=== PATIENT | male | born 1955 | race Caucasian/White ===

== ENCOUNTER → 2016-12-05 | Outpatient (CLI) | payer OTHER ==
[~2016-12-05] MED LIST: ASPI81TA3 PO; CHLO25TA13 PO; IBUP800T25 PO; IMO2 PO; LISI40TA9 PO; METF850T PO; NAPR500T8 PO; SIMV20TA PO
--- NOTE | 2016-12-06 02:11 | HKNOTE ---
DATE OF SERVICE: 12/05/2016 Patient comes in for preoperative evaluation. He is scheduled to have an operative arthroscopy on h is right knee on 12/06/2016. He came here for surgery by Dr. Riley Hawley. He continues to have s ignificant symptoms in his left knee. The procedure and postoperative course were again discussed w ith him. Dictated By: ANUM DOVE/ANGELES Conf#: [id number] DID#: [id number]
== END | disposition home or self-care (01) ==
LOC: HKI 13:32
DX: Z01.818 Encounter for other preprocedural examination (principal); M25.562 Pain in left knee
CPT/HCPCS: G0463

== ENCOUNTER 2016-12-06 07:25 | Day surgery (SDC) | payer OTHER ==
[2016-12-06] VITALS (17 sets, daily range): BP systolic 124–154; BP diastolic 78–95; PULSE 78–95; RESP 13–19; Ht 175.3 cm; Wt 90.6 kg
[~2016-12-06] VITALS: Ht 175.3 cm; Wt 90.6 kg
[2016-12-06] MEDS ORDERED: ONDANSETRON 4 MG INJ IV ONE (08:00)
[2016-12-06] MEDS ORDERED: LACTATED RINGER'S 1,000 ML IV* SCH (08:00)
[2016-12-06] MEDS ORDERED: CELECOXIB 200 MG CAP PO ONE (08:00)
[2016-12-06] MEDS ORDERED: LANSOPRAZOLE 30 MG CAP PO ONE (08:00)
[2016-12-06] MEDS ORDERED: DEXAMETHASONE 4 MG/ML 1 ML INJ IV ONE (08:00)
[2016-12-06] MEDS ORDERED: VANCOMYCIN 1 GM in NS 250 ML IVPB ONE (08:00)
[2016-12-06] MEDS ORDERED: ACETAMINOPHEN 1000MG/100ML IV 100 ML IVPB ONE (08:00)
[2016-12-06] MEDS ORDERED: oxyCODONE (CR) 10 MG TAB [oxyCONTIN] PO ONE (08:00)
[2016-12-06] MEDS ORDERED: ASPI81TA3 PO (08:28)
[2016-12-06] MEDS ORDERED: IMO2 PO (08:28)
[2016-12-06] MEDS ORDERED: SIMV20TA PO (08:28)
[2016-12-06] MEDS ORDERED: IBUP800T25 PO (08:28)
[2016-12-06] MEDS ORDERED: CHLO25TA13 PO (08:28)
[2016-12-06] MEDS ORDERED: NAPR500T8 PO (08:28)
[2016-12-06] MEDS ORDERED: LISI40TA9 PO (08:28)
[2016-12-06] MEDS ORDERED: METF850T PO (08:28)
[2016-12-06] MEDS ORDERED: GLYCOPYRROLATE 1 MG INJ ONE (09:56)
[2016-12-06] MEDS ORDERED: ROCURONIUM 50 MG INJ ONE (09:56)
[2016-12-06] MEDS ORDERED: MIDAZOLAM 1 MG/ML 2 ML INJ ONE (09:56)
[2016-12-06] MEDS ORDERED: PROPOFOL 20 ML ONE (09:56)
[2016-12-06] MEDS ORDERED: FENTAnyl 50 MCG/ML VIAL ONE (09:56)
[2016-12-06] MEDS ORDERED: LIDOCAINE 2% (SDV) 5 ML INJ ONE (09:56)
[2016-12-06] MEDS ORDERED: NEOSTIGMINE 3 MG/3 ML SYRINGE ONE (09:56)
[2016-12-06] MEDS ORDERED: SUCCINYLCHOLINE CHLORIDE 100 MG/5 ML SYG IV ONE (09:57)
[2016-12-06] MEDS ORDERED: morphine SULFATE/PF (10 MG/10 ML) INJ ONE (10:15)
[2016-12-06] MEDS ORDERED: ROPIVACAINE 0.5 % 30 ML VIAL ONE (10:15)
[2016-12-06] MEDS ORDERED: BUPIVACAINE 0.25%/EPI (SDV) 30 ML INJ ONE (10:15)
[2016-12-06] MEDS ORDERED: KETOROLAC 30 MG INJ ONE (10:15)
--- NOTE | 2016-12-06 10:39 | HPN ---
Date/Time of Note Date/Time of Note DATE: 12/06/16 TIME: 10:38 Interval H&P Admission Note Pt. seen H&P reviewed: No system changes ANDREW OSLER PA-C Dec 06, 2016 10:38
[2016-12-06] MEDS ORDERED: FLUMAZENIL 0.5 MG INJ ONE (12:55)
[2016-12-06] MEDS ORDERED: morphine 10 MG INJ IV PRN (13:00)
[2016-12-06] MEDS ORDERED: HYDROCODONE/APAP (10/325) TAB PO PRN (13:00)
[2016-12-06] MEDS ORDERED: ACETAMINOPHEN 1000MG/100ML IV 100 ML IVPB SCH (13:00)
[2016-12-06] MEDS ORDERED: ONDANSETRON 4 MG INJ IV PRN (13:00)
[2016-12-06] MEDS ORDERED: HYDROCODONE/APAP (5/325) TAB PO PRN (13:00)
--- NOTE | 2016-12-06 15:17 | OPR ---
DATE OF OPERATION: 12/06/2016 SURGEON: David Sanchez MD WET COTTON FEEDER: DEMI Sky ANESTHESIOLOGIST: Antoine Maurer MD PREOPERATIVE DIAGNOSIS: Probable torn medial meniscus of the left knee. POSTOPERATIVE DIAGNOSES: 1. Torn medial meniscus, posterior third. 2. Mild degenerative changes in the patellofemoral joint. 3. Mild degenerative changes in the rest of the knee, more severe on the lateral tibial plateau. T he lateral meniscus was almost entirely normal except for fraying edges which were trimmed. PROCEDURES: 1. Diagnostic arthroscopy. 2. Partial medial meniscectomy. 3. Partial lateral meniscectomy. FINDINGS AT SURGERY: The patient was found to have compound tears of the posterior third of the med ial meniscus. DESCRIPTION OF PROCEDURE: Under general anesthetic, the left leg was prepared and draped in the usu al sterile fashion. A tourniquet was not used. Standard inferomedial and inferolateral portals wer e used. The knee was systematically inspected, and the above findings were noted. Using a variety of basket forceps and the motorized intraarticular shaver, a partial medial meniscec benedict was performed. The remaining meniscus was balanced and stable. Using basket forceps and the motorized intraarticular shaver, a partial lateral meniscectomy was per formed. Remaining meniscus was balanced and stable. At the end of procedure, the knee was copiously irrigated with fluids to remove the contained fragme nts. Fluid was aspirated. The wounds were closed with interrupted nylon. The usual sterile dressi ngs were applied. The patient returned to recovery room in stable condition. There were no problem s or complications as far as is known. Dictated By: DAVID DOVE/ANGELES Conf#: [id number] DID#: [id number]
== END 2016-12-06 15:50 | disposition home or self-care (01) ==
LOC: SDS 07:25
DX: M23.204 Derangement of unspecified medial meniscus due to old tear or injury, left knee (principal); M17.12 Unilateral primary osteoarthritis, left knee; I10 Essential (primary) hypertension; E11.9 Type 2 diabetes mellitus without complications; F17.200 Nicotine dependence, unspecified, uncomplicated
CPT/HCPCS: 29870; 82962; J0131; J0330; J1100; J1885; J2250; J2274; J2405; J2710; J2795; J3010; J3370; Z7610

== ENCOUNTER → 2016-12-11 | Outpatient (CLI) | payer OTHER ==
--- NOTE | 2016-12-11 22:41 | HKNOTE ---
DATE OF SERVICE: 12/11/2016 SUBJECTIVE: A 61-year-old male status post left knee arthroscopy with partial medial meniscectomy and partial lateral meniscectomy performed on 12/06/2016 presents today for postoperative visit. Since the surgery, patient states that he has been in minimal pain since discharge from the hospital. At times, patient states that he has slight limp, but denies any pain with ambulation. The patient states that he has been going 1 day with independent ambulation and 1 day with crutches. No falls since he was seen. The patient denies any calf pain. No difficulty breathing or chest pain. OBJECTIVE: VITAL SIGNS: Blood pressure 116/66, temperature 98.6 degrees, pulse 89, respiratory rate 12, height 5 feet 9 inches, weight 220 pounds. GENERAL: The patient is alert, oriented with no acute distress. RIGHT KNEE: Sutures intact to the right knee. Mild swelling status post surgery local to the right knee. No tenderness to palpation. There is mild ecchymosis along the medial side of the knee just distal to the surgical wound. The patient is able to flex the knee up to 120 degrees and extend up to 0 degrees. The patient is walking today with slight limp, but denies any pain with ambulation. Normal sensory examination to light touch. No calf pain on exam. Arthroscopic imaging reviewed, discussed with patient and patient provided with copy today. ASSESSMENT AND PLAN: The patient will follow up 10 days postop for suture removal. Physical therapy will be prescribed on followup next week. The patient made aware, however, should he experience any pain complaints or worsening symptoms, he may follow up sooner if needed. The patient states understanding and compliance. Dictated By: ANDREW SIMMS for ANUM NOVAK MD, KP/ANGELES Conf#: [id number] DID#: [id number] MTDD
== END | disposition home or self-care (01) ==
LOC: HKI 13:46
DX: Z47.89 Encounter for other orthopedic aftercare (principal)
CPT/HCPCS: G0463

== ENCOUNTER → 2016-12-18 | Outpatient (CLI) | payer OTHER ==
--- NOTE | 2016-12-18 17:54 | HKNOTE ---
DATE OF SERVICE: 12/18/2016 SUBJECTIVE: A 61-year-old male presents today for 10-day postoperative visit status post left knee arthroscopy with partial medial and lateral meniscectomy performed on 12/06/2016. Since the surgery, patient has mild pain complaints. The patient is up and ambulating. No complications status post surgery. Sutures remain intact. VITAL SIGNS: Blood pressure is 108/69, temperature is 98.7, pulse is 87, respiratory rate is 12. Height is 5 feet 9 inches, weight is 220 pounds. PHYSICAL EXAMINATION: The patient is ambulating. Mild pain complaints/aching with ambulation to the right knee. Wound sites are clean, dry and intact with no signs of infection. Sutures intact. No tenderness to palpation on exam. The patient does have complaints of aching and pain, mostly with weightbearing. PLAN: 1. Sutures removed today and Steri-Strips applied. Wound care instructions discussed in detail with patient. 2. Physical therapy form given for patient for outpatient physical therapy. 3. Paperwork filled out today, and per instructions by Dr. Novak, 6 months given with instructions that patient is unable to perform sedentary work. 4. Dr. Novak has advised patient to follow up in 3 weeks for repeat evaluation and monitoring. Dictated By: ANDREW SIMMS for ANUM NOVAK MD, KP/ANGELES Conf#: [id number] DID#: [id number] MTDD
== END | disposition home or self-care (01) ==
LOC: HKI 14:25
DX: Z47.89 Encounter for other orthopedic aftercare (principal)
CPT/HCPCS: G0463

== ENCOUNTER 2016-12-26 19:25 | Emergency (ER) | payer OTHER ==
[~2016-12-26] VITALS: Ht 177.8 cm; Wt 90.5 kg
[2016-12-26 20:13] VITALS: Ht 177.8 cm; Wt 90.5 kg
[2016-12-26] MEDS ORDERED: HYDR-906 PO (21:53)
[2016-12-26] MEDS ORDERED: BACTDS PO (21:53)
[2016-12-26] MEDS ORDERED: CEPH-443 PO (21:53)
[2016-12-26 22:07] VITALS: TEMP 98.3
--- NOTE | 2016-12-26 23:05 | ERD ---
ER Documentation Chief Complaint Date/Time DATE: 12/26/16 TIME: 23:04 Chief Complaint Right foot pain HPI 61-year-old male who presents with right foot pain. He describes a blister on the plantar surface of his foot that is moderately painful. He does have a history of diabetes. Symptoms for approximately 48 hours. He denies any fevers chills or drainage. ROS All systems reviewed and are negative except as per history of present illness. Medications Home Meds Active Scripts Sulfamethoxazole-Trimethoprim* (Bactrim* DS) 800-160 Mg Tab, 1 TAB PO BID for 7 Days, TAB Prov:MARILU ROBIN MD 12/26/16 Cephalexin* (Keflex*) 500 Mg Capsule, 500 MG PO QID for 7 Days, CAP Prov:MARILU ROBIN MD 12/26/16 Hydrocodone/Acetaminophen ([place] 5-325 Tablet) 1 Each Tablet, 1 TAB PO Q6H Y for PAIN, #7 TAB Prov:MARILU ROBIN MD 12/26/16 Reported Medications Metformin Hcl* (Metformin Hcl*) 850 Mg Tablet, 850 MG PO WITH BREAKFAST, #30 TAB 12/06/16 Naproxen* (Naproxen EC*) 500 Mg Tablet.dr, 500 MG PO BID, TAB 12/06/16 Chlorthalidone* (Chlorthalidone*) 25 Mg Tablet, 25 MG PO DAILY, TAB 12/06/16 Lisinopril* (Lisinopril*) 40 Mg Tablet, 40 MG PO DAILY, #30 TAB 12/06/16 Simvastatin* (Zocor*) 20 Mg Tablet, 20 MG PO QHS, #30 TAB 12/06/16 Loperamide Hcl* (Loperamide Hcl*) 2 Mg Cap, 2 MG PO, CAP 12/06/16 Ibuprofen* (Ibuprofen*) 800 Mg Tablet, 800 MG PO Q8, TAB 12/06/16 Aspirin* (Aspirin* Chew) 81 Mg Tab.chew, 81 MG PO DAILY, TAB.CHEW 12/06/16 Allergies Allergies: Coded Allergies: No Known Allergy (Unverified , 12/06/16) PMhx/Soc History of Surgery: Yes (left knee surgery) Anesthesia Reaction: No Hx Neurological Disorder: No Hx Respiratory Disorders: No Hx Cardiac Disorders: Yes (htn, dm) Hx Psychiatric Problems: No Hx Miscellaneous Medical Probl: No Hx Alcohol Use: Yes (rarely) Hx Substance Use: No Hx Tobacco Use: No Smoking Status: Never smoker FmHx Family History: diabetes Physical Exam Vitals Vital Signs Date Time Temp Pulse Resp B/P Pulse Ox O2 Delivery O2 Flow Rate FiO2 12/26/16 22:07 98.3 12/26/16 20:13 96 18 121/81 98 Physical Exam General: Well developed, well nourished, no acute distress Head: Normocephalic, atraumatic. Eyes: EOM intact ENT: Moist mucous membranes Neck: Full ROM Respiratory: No respiratory distress Cardiovascular: Good capillary refil Abdominal: Nondistended : Deferred MSK: The patient has a small ulceration in between the first and second MTP joints without erythema warmth or tenderness, no drainage or discharge. This appears to be subacute, good capillary refill. Neurologic: Alert and oriented, moving all extremities, normal speech, steady gait Skin: As described above Psych: Normal mood Procedures/MDM The patient has a clinical exam consistent with a diabetic foot ulcer that does not appear to be infected. No evidence of osteomyelitis. Empiric antibiotics will be reasonable, outpatient follow-up with podiatry was certainly necessary. I discussed wound care techniques, return precautions. The patient will be given pain control medication. No indication for labs or diagnostic imaging at this time. We discussed follow up with the patient's primary care doctor within 24 to 48 hours as needed. We also discussed return to the emergency room for worsening symptoms or worsening condition. Discharge Medications: Bactrim, Keflex, [place] We discussed the use of narcotics including avoidance of operating heavy machinery and driving as well as its addictive properties. Departure Diagnosis: Primary Impression: Foot ulcer Laterality: right Non-pressure ulcer stage: limited to breakdown of skin Qualified Code: L97.511 - Foot ulcer, right, limited to breakdown of skin Additional Impression: Foot ulcer due to secondary DM Condition: Stable Patient Instructions: Diabetic Foot Ulcers Referrals: BANDAR SARKAR MD, BABAK DPM Additional Instructions: Call your primary care doctor TOMORROW for an appointment during the next 1 WEEK.Tell the unit secretary that you were referred from this facility.See the doctor sooner or return here if your condition worsens before your appointment time. MARILU ROBIN MD Dec 26, 2016 23:05
== END 2016-12-26 22:07 | disposition home or self-care (01) ==
LOC: FTE 19:25
DX: L97.511 Non-pressure chronic ulcer of other part of right foot limited to breakdown of skin (principal); E11.621 Type 2 diabetes mellitus with foot ulcer; I10 Essential (primary) hypertension; Z79.84 Long term (current) use of oral hypoglycemic drugs; Z79.82 Long term (current) use of aspirin
CPT/HCPCS: 99284

== ENCOUNTER 2017-05-25 16:58 | Emergency (ER) | payer OTHER ==
[~2017-05-25] VITALS: Ht 175.3 cm; Wt 76.5 kg
[~2017-05-25 16:58] MED LIST changes: +BACTDS PO; +CEPH-443 PO; +HYDR-906 PO
[2017-05-25 17:00] VITALS: Ht 175.3 cm; Wt 76.5 kg
[2017-05-25] MEDS ORDERED: CIPR7.5D4 BOTH EARS (17:45)
--- NOTE | 2017-05-25 17:52 | ERD ---
ER Documentation Chief Complaint Date/Time DATE: 05/25/17 TIME: 17:45 Chief Complaint LEFT EAR DIMINISHED HEARING HPI Patient is a 61-year-old male with past medical history of hypertension, hyperlipidemia, diabetes presents emergency department for decreased hearing from his left ear. Patient is concerned that he may have a buildup of wax. Patient denies any pain, active drainage or active bleeding.. Patient denies any fevers, chills, nausea, vomiting, cough, rhinorrhea, chest pain, shortness breath or LOC. Denies any recent water activities. ROS All systems reviewed and are negative except as per history of present illness. Medications Home Meds Active Scripts Amoxicillin* (Amoxicillin*) 500 Mg Cap, 500 MG PO BID for 7 Days, CAP Prov:JAMIL LUIS PA-C 05/25/17 Ciprofloxacin Hcl/Dexameth (Ciprodex Otic Suspension) 7.5 Ml Drops.susp, 4 DROP BOTH EARS BID for 7 Days, EA Prov:JAMIL LUIS PA-C 05/25/17 Sulfamethoxazole-Trimethoprim* (Bactrim* DS) 800-160 Mg Tab, 1 TAB PO BID for 7 Days, TAB Prov:MARILU ROBIN MD 12/26/16 Cephalexin* (Keflex*) 500 Mg Capsule, 500 MG PO QID for 7 Days, CAP Prov:MARILU ROBIN MD 12/26/16 Hydrocodone/Acetaminophen ([place] 5-325 Tablet) 1 Each Tablet, 1 TAB PO Q6H Y for PAIN, #7 TAB Prov:MARILU ROBIN MD 12/26/16 Reported Medications Metformin Hcl* (Metformin Hcl*) 850 Mg Tablet, 850 MG PO WITH BREAKFAST, #30 TAB 12/06/16 Naproxen* (Naproxen EC*) 500 Mg Tablet.dr, 500 MG PO BID, TAB 12/06/16 Chlorthalidone* (Chlorthalidone*) 25 Mg Tablet, 25 MG PO DAILY, TAB 12/06/16 Lisinopril* (Lisinopril*) 40 Mg Tablet, 40 MG PO DAILY, #30 TAB 12/06/16 Simvastatin* (Zocor*) 20 Mg Tablet, 20 MG PO QHS, #30 TAB 12/06/16 Loperamide Hcl* (Loperamide Hcl*) 2 Mg Cap, 2 MG PO, CAP 1/27/17 Ibuprofen* (Ibuprofen*) 800 Mg Tablet, 800 MG PO Q8, TAB 12/06/16 Aspirin* (Aspirin* Chew) 81 Mg Tab.chew, 81 MG PO DAILY, TAB.CHEW 12/06/16 Allergies Allergies: Coded Allergies: No Known Allergy (Unverified , 12/06/16) PMhx/Soc History of Surgery: Yes (left knee surgery) Anesthesia Reaction: No Hx Neurological Disorder: No Hx Respiratory Disorders: No Hx Cardiac Disorders: Yes (htn, dm) Hx Psychiatric Problems: No Hx Miscellaneous Medical Probl: No Hx Alcohol Use: Yes (rarely) Hx Substance Use: No Hx Tobacco Use: No FmHx Family History: No diabetes Physical Exam Vitals Vital Signs Date Time Temp Pulse Resp B/P Pulse Ox O2 Delivery O2 Flow Rate FiO2 05/25/17 17:00 98.3 95 18 117/75 99 Physical Exam GENERAL: Well-developed, well-nourished male. Appears in no acute distress. Speaking in full sentences HEAD: Normocephalic, atraumatic. No deformities or ecchymosis. EYE: Pupils equal, round, and reactive to light. EOMs intact. No conjunctival erythema. No eye discharge. ENT: External ear without any masses or tenderness. Difficulty with visualizing bilateral tympanic membranes secondary to cerumen impaction. Nasal mucosa pink with no discharge. Oropharynx is pink without any tonsillar erythema or exudates. No uvula deviation. No kissing tonsils. Nontender palpation of bilateral mastoid processes. NECK: Supple. No meningismus. Normal ROM of the neck. LUNG: Clear to auscultation bilaterally. No rhonchi, wheezing, rales or coarse breath sounds. HEART: Regular rate and rhythm. No murmurs, rubs or gallops. BACK: No midline tenderness. EXTREMITIES: Equal pulses bilaterally. No peripheral clubbing, cyanosis or edema. No unilateral leg swelling. NEUROLOGIC: Alert and oriented to person, place and time. Moving all four extremities. 5/5 strength in all extremities. Normal speech. Steady gait. SKIN: Normal color. Warm and dry. No rashes or lesions. Procedures/MDM MEDICAL DECISION MAKING: This is a 61-year-old male who presents with decreased hearing from his left ear. Vital signs were reviewed. Patient was afebrile. Patient was not hypoxic. Exam revealed bilateral cerumen impaction. Unable to visualize TM. Ear lavage was performed by ED nursing staff using H20/hydrogen peroxide mix. No trauma or complications were noted. Patient did report improvement in hearing, however some cerumen did remain on visualization. Repeat ear lavage was conducted given that patient reported feelings of dizziness, which did completely resolve with rest and discontinuation of ear lavages. Slightly able to visualize TM, non-erythematous, however unable to fully visualize. Given these findings, the patient's presentation is most consistent with cerumen impaction. I have a much lower clinical suspicion tympanic membrane perforation , mastoiditis, otic barotrauma, TMJ dysfunction. Given that the patient does have a history of diabetes and difficulty noted with fully visualize TM, I will treat the patient prophylactically with Amoxicillin and Ciprodex. PRESCRIPTIONS: Amoxicillin Ciprodex DISCHARGE: At this time, patient is stable for discharge and outpatient management. Patient advised not use Qtips. I have instructed the patient to follow-up with his/her primary care physician in 1-2 days. I have discussed with the patient the possibility of needing to see ENT specialist for further workup and diagnostic studies if the pain persists. I have instructed the patient to promptly return to the ER at any time for any new or worsening symptoms including increased pain, fever, swelling, discharge or hearing loss. The patient and/or family expressed understanding of and agreement with this plan. All questions were answered. Home care instructions were provided. Departure Diagnosis: Primary Impression: Cerumen impaction Laterality: bilateral Qualified Code: H61.23 - Bilateral impacted cerumen Additional Impression: Other otitis externa, unspecified ear Condition: Stable Patient Instructions: Cerumen Impaction, Home Care Referrals: ABDON HERNANDEZ MD,HUGH KATZ,FRANDY STALLINGS,SANTOS Martinez MD Additional Instructions: Call your primary care doctor TOMORROW for an appointment during the next 1-2 days.See the doctor sooner or return here if your condition worsens before your appointment time. You may need to follow-up with ENT specialist. See referral information. DO NOT use Qtips. Use antibiotic ear drops. JAMIL LUIS PA-C May 25, 2017 17:52
[2017-05-25] MEDS ORDERED: AMO500 PO (19:04)
== END 2017-05-25 19:13 | disposition home or self-care (01) ==
LOC: FTE 16:58
DX: H61.23 Impacted cerumen, bilateral (principal); H60.8X3 Other otitis externa, bilateral; I10 Essential (primary) hypertension; E11.9 Type 2 diabetes mellitus without complications; Z79.82 Long term (current) use of aspirin; Z79.84 Long term (current) use of oral hypoglycemic drugs

== ENCOUNTER 2017-12-03 01:08 | Observation (INO) | END 2017-12-04 18:12 | disposition home or self-care (01) ==

== ENCOUNTER 2019-05-09 05:06 | Emergency (ER) | payer OTHER ==
[~2019-05-09] VITALS: Ht 175.3 cm; Wt 80.8 kg
[~2019-05-09 05:06] MED LIST changes: +ASPI-903 PO; -ASPI81TA3 PO; -BACTDS PO; -CEPH-443 PO; -CHLO25TA13 PO; +CHLO25TA2 PO; -HYDR-906 PO; -IBUP800T25 PO; -IMO2 PO; +LISI40TA3 PO; -LISI40TA9 PO; +LOPE-123 PO; -METF850T PO; +METF850T13 PO
[2019-05-09 05:10] VITALS: BP 180/90; PULSE 95; RESP 18; Ht 175.3 cm; Wt 80.8 kg
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
[2019-05-09] MEDS ORDERED: HYDROCODONE/APAP (10/325) TAB PO ONE (06:00)
[2019-05-09] MEDS ORDERED: DIPHTH/TET/ACEL PERTUSS (ADULT) 0.5 ML VIAL IM* ONE (06:00)
[2019-05-09] MEDS ORDERED: AMOXICILLIN/CLAV 875 MG TAB PO ONE (08:00)
[2019-05-09] MEDS ORDERED: HYDR-3980 PO (08:25)
[2019-05-09] MEDS ORDERED: AMOX1TAB10 PO (08:26)
[2019-05-09] MEDS ORDERED: IBUP800T48 PO (08:27)
== END 2019-05-09 08:39 | disposition home or self-care (01) ==
LOC: FTE 05:06
DX: S02.40DA Maxillary fracture, left side, initial encounter for closed fracture (principal); I10 Essential (primary) hypertension; S02.601A Fracture of unspecified part of body of right mandible, initial encounter for closed fracture; S02.602A Fracture of unspecified part of body of left mandible, initial encounter for closed fracture; Y04.8XXA Assault by other bodily force, initial encounter; Z23 Encounter for immunization; Z79.82 Long term (current) use of aspirin; Z87.891 Personal history of nicotine dependence
CPT/HCPCS: 70450; 70486; 72125; 90471; 90715; Z7502; Z7610

== ENCOUNTER 2019-09-03 18:27 | Inpatient (IN) | payer OTHER ==
[~2019-09-03] VITALS: Ht 175.3 cm; Wt 84.0 kg
[~2019-09-03 18:27] MED LIST changes: +AMLO-147 PO; +AMOX1TAB10 PO; +AMOX500C2 PO; +CEPH500C PO; +DOCU-144 PO; +FER325 PO; +HYDR-3980 PO; +IBUP800T48 PO; +MECL-77 PO; +TAMS-14 PO
[2019-09-03] MEDS ORDERED: VANCOMYCIN 1 GM (PMX) 250 ML IVPB STA (19:33)
[2019-09-03] MEDS ORDERED: SODIUM CHLORIDE 0.9% 1L BAG IV* STA (19:33)
[2019-09-03] MEDS ORDERED: PIPER-TAZO 3.375 GM IV (PMX) 100 ML IVPB STA (19:33)
[2019-09-03] MEDS ORDERED: ONDANSETRON 4 MG INJ IV PRN (20:30)
[2019-09-03] MEDS ORDERED: ACETAMINOPHEN 325 MG TAB PO PRN (20:30)
[2019-09-03] MEDS ORDERED: SOD CHLORIDE 0.9% 1,000 ML IV SCH (23:57)
[2019-09-04] MEDS ORDERED: ALBUTEROL/IPRATROPIUM (NEB) 3 ML AMP HHN PRN
[2019-09-04 03:00] VITALS: Ht 175.3 cm; Wt 84.0 kg
[2019-09-04 03:15] VITALS: BP 98/60; PULSE 85; RESP 17
[2019-09-04] MEDS ORDERED: DEXTROSE 50% 50 ML SYRINGE IV PRN ×2 (07:00)
[2019-09-04] MEDS ORDERED: ACETAMINOPHEN 325 MG TAB PO PRN ×2 (07:00)
[2019-09-04] MEDS ORDERED: NACL 0.9% 3 ML SYG IV SCH ×2 (07:00)
[2019-09-04] MEDS ORDERED: GLUCOSE GEL 15 GRAM TUBE PO PRN ×2 (07:00)
[2019-09-04] MEDS ORDERED: GLUCAGON 1 MG INJ IM PRN (07:00)
[2019-09-04] MEDS ORDERED: MECLIZINE 25 MG TAB PO PRN (07:00)
[2019-09-04] MEDS ORDERED: GLUCOSE GEL 15 GRAM TUBE BUCCAL PRN (07:00)
[2019-09-04] MEDS ORDERED: HYDROCODONE/APAP (5/325) TAB PO PRN (07:00)
[2019-09-04] MEDS ORDERED: VANCOMYCIN IV PER PHARMACY XX SCH (07:00)
[2019-09-04] MEDS ORDERED: ONDANSETRON 4 MG INJ IV PRN ×2 (07:00)
[2019-09-04] MEDS: ACCU-CHEK XX SCH ×4 (07:05→20:32)
[2019-09-04] MEDS: SOD CHLORIDE 0.9% 1,000 ML IV SCH ×2 (07:12→17:17)
[2019-09-04] MEDS: PIPER-TAZO 3.375 GM IV (PMX) 100 ML IVPB SCH ×4 (07:12→23:45)
[2019-09-04 07:46] VITALS: BP 128/65; PULSE 80; RESP 17
[2019-09-04] MEDS: DOCUSATE SODIUM 100 MG CAP PO SCH ×2 (08:53→20:31)
[2019-09-04] MEDS: LISINOPRIL 20 MG TAB PO SCH (08:54)
[2019-09-04] MEDS: metFORMIN 850 MG TAB PO SCH ×2 (08:54→17:18)
[2019-09-04] MEDS: FERROUS SULFATE (EC) 325 MG TAB PO SCH ×2 (08:54→20:31)
[2019-09-04] MEDS: AMLODIPINE 10 MG TAB PO SCH (08:55)
[2019-09-04] MEDS: CHLORTHALIDONE 25 MG TAB PO SCH (08:55)
[2019-09-04] MEDS: ENOXAPARIN 40 MG/0.4 ML SYG SC SCH (08:57)
[2019-09-04] MEDS ORDERED: HEPARIN 5,000 UNIT/1 ML VIAL SC SCH (09:00)
[2019-09-04] MEDS: VANCOMYCIN 1 GM 250 ML IVPB SCH ×2 (09:00→20:01)
[2019-09-04 14:31] VITALS: BP 138/68; PULSE 93; RESP 17
[2019-09-04] MEDS: HYDROCODONE/APAP (5/325) TAB PO PRN (17:18)
[2019-09-04 19:40] VITALS: BP 121/58; PULSE 86; RESP 18
[2019-09-04] MEDS: TAMSULOSIN (SR) 0.4 MG CAP PO SCH (20:31)
[2019-09-04] MEDS: ATORVASTATIN 10 MG TAB PO SCH (20:32)
[2019-09-04] MEDS ORDERED: NON-FORMULARY/PATIENT OWN MED (Simvastatin* (Zocor*) 20 MG) PO SCH (21:00)
[2019-09-05 02:00] VITALS: BP 132/60; PULSE 90; RESP 18
[2019-09-05] MEDS: PIPER-TAZO 3.375 GM IV (PMX) 100 ML IVPB SCH ×4 (05:26→23:31)
[2019-09-05] MEDS: ACCU-CHEK XX SCH ×4 (07:05→20:17)
[2019-09-05 07:44] VITALS: BP 120/61; PULSE 86; RESP 20
[2019-09-05] MEDS: metFORMIN 850 MG TAB PO SCH ×2 (08:54→17:33)
[2019-09-05] MEDS: LISINOPRIL 20 MG TAB PO SCH (08:56)
[2019-09-05] MEDS: CHLORTHALIDONE 25 MG TAB PO SCH (08:56)
[2019-09-05] MEDS: DOCUSATE SODIUM 100 MG CAP PO SCH ×2 (08:57→20:26)
[2019-09-05] MEDS: FERROUS SULFATE (EC) 325 MG TAB PO SCH ×2 (08:57→20:26)
[2019-09-05] MEDS: ENOXAPARIN 40 MG/0.4 ML SYG SC SCH (09:01)
[2019-09-05] MEDS: VANCOMYCIN 1 GM 250 ML IVPB SCH ×2 (09:01→19:52)
[2019-09-05] MEDS: AMLODIPINE 10 MG TAB PO SCH (09:02)
[2019-09-05] MEDS ORDERED: POTASSIUM CHLORIDE (SR) 20 MEQ TAB PO STA (09:27)
[2019-09-05] MEDS: SOD CHLORIDE 0.9% 1,000 ML IV SCH ×2 (11:11→15:00)
[2019-09-05 14:57] VITALS: BP 131/65; PULSE 95; RESP 20
[2019-09-05 20:11] VITALS: BP 146/79; PULSE 89; RESP 20
[2019-09-05] MEDS: HYDROCODONE/APAP (5/325) TAB PO PRN (20:26)
[2019-09-05] MEDS: ATORVASTATIN 10 MG TAB PO SCH (20:26)
[2019-09-05] MEDS: TAMSULOSIN (SR) 0.4 MG CAP PO SCH (20:26)
[2019-09-06 02:55] VITALS: BP 177/83; PULSE 84; RESP 20
[2019-09-06 04:05] VITALS: BP 107/62; PULSE 84
[2019-09-06] MEDS: PIPER-TAZO 3.375 GM IV (PMX) 100 ML IVPB SCH ×3 (05:15→17:05)
[2019-09-06] MEDS: ACCU-CHEK XX SCH ×4 (07:05→21:00)
[2019-09-06 07:36] VITALS: BP 100/59; PULSE 67; RESP 16
[2019-09-06] MEDS ORDERED: VANCOMYCIN 1.25 GM/NS 250 ML 250 ML IVPB SCH (08:00)
[2019-09-06] MEDS: VANCOMYCIN 1.25 GM/NS 250 ML 250 ML IVPB SCH ×2 (08:42→20:37)
[2019-09-06] MEDS: metFORMIN 850 MG TAB PO SCH ×2 (08:48→17:12)
[2019-09-06] MEDS: DOCUSATE SODIUM 100 MG CAP PO SCH ×2 (08:49→20:13)
[2019-09-06] MEDS: FERROUS SULFATE (EC) 325 MG TAB PO SCH ×2 (08:49→20:13)
[2019-09-06] MEDS: AMLODIPINE 10 MG TAB PO SCH (08:51)
[2019-09-06] MEDS: CHLORTHALIDONE 25 MG TAB PO SCH (08:51)
[2019-09-06] MEDS: ENOXAPARIN 40 MG/0.4 ML SYG SC SCH (08:52)
[2019-09-06] MEDS: LISINOPRIL 20 MG TAB PO SCH (08:53)
[2019-09-06] MEDS: SOD CHLORIDE 0.9% 1,000 ML IV SCH (13:13)
[2019-09-06 14:45] VITALS: BP 137/73; PULSE 91; RESP 17
[2019-09-06 20:00] VITALS: BP 131/73; PULSE 91; RESP 18
[2019-09-06] MEDS: TAMSULOSIN (SR) 0.4 MG CAP PO SCH (20:13)
[2019-09-06] MEDS: ATORVASTATIN 10 MG TAB PO SCH (20:13)
[2019-09-07] MEDS: PIPER-TAZO 3.375 GM IV (PMX) 100 ML IVPB SCH ×4 (00:01→17:21)
[2019-09-07 02:00] VITALS: BP 163/90; PULSE 95; RESP 18
[2019-09-07] MEDS: SOD CHLORIDE 0.9% 1,000 ML IV SCH (05:36)
[2019-09-07] MEDS: ACCU-CHEK XX SCH ×4 (07:05→20:14)
[2019-09-07 07:50] VITALS: BP 166/77; PULSE 90; RESP 19
[2019-09-07] MEDS: VANCOMYCIN 1.25 GM/NS 250 ML 250 ML IVPB SCH ×2 (08:38→19:53)
[2019-09-07] MEDS: DOCUSATE SODIUM 100 MG CAP PO SCH ×2 (08:41→20:05)
[2019-09-07] MEDS: LISINOPRIL 20 MG TAB PO SCH (08:42)
[2019-09-07] MEDS: AMLODIPINE 10 MG TAB PO SCH (08:42)
[2019-09-07] MEDS: FERROUS SULFATE (EC) 325 MG TAB PO SCH ×2 (08:43→20:05)
[2019-09-07] MEDS: ENOXAPARIN 40 MG/0.4 ML SYG SC SCH (08:43)
[2019-09-07] MEDS: CHLORTHALIDONE 25 MG TAB PO SCH (08:43)
[2019-09-07] MEDS: metFORMIN 850 MG TAB PO SCH ×2 (08:50→17:19)
[2019-09-07 14:50] VITALS: BP 136/72; PULSE 92; RESP 18
[2019-09-07 19:48] VITALS: BP_SYST 128; BP_SYST 178; BP_DIAS 88; PULSE 87; RESP 17
[2019-09-07] MEDS: HYDROCODONE/APAP (5/325) TAB PO PRN (20:00)
[2019-09-07] MEDS: TAMSULOSIN (SR) 0.4 MG CAP PO SCH (20:05)
[2019-09-07] MEDS: ATORVASTATIN 10 MG TAB PO SCH (20:05)
[2019-09-08] MEDS: PIPER-TAZO 3.375 GM IV (PMX) 100 ML IVPB SCH ×4 (00:28→17:43)
[2019-09-08 01:53] VITALS: BP 124/76; PULSE 80; RESP 18
[2019-09-08] MEDS: ACCU-CHEK XX SCH ×4 (07:05→21:00)
[2019-09-08 07:50] VITALS: BP 136/88; PULSE 84; RESP 18
[2019-09-08] MEDS: CHLORTHALIDONE 25 MG TAB PO SCH (08:22)
[2019-09-08] MEDS: AMLODIPINE 10 MG TAB PO SCH (08:23)
[2019-09-08] MEDS: FERROUS SULFATE (EC) 325 MG TAB PO SCH ×2 (08:24→20:12)
[2019-09-08] MEDS: LISINOPRIL 20 MG TAB PO SCH (08:24)
[2019-09-08] MEDS: DOCUSATE SODIUM 100 MG CAP PO SCH ×2 (08:24→20:12)
[2019-09-08] MEDS: ENOXAPARIN 40 MG/0.4 ML SYG SC SCH (08:25)
[2019-09-08] MEDS: metFORMIN 850 MG TAB PO SCH ×2 (08:28→17:43)
[2019-09-08] MEDS: VANCOMYCIN 1.25 GM/NS 250 ML 250 ML IVPB SCH ×2 (09:53→20:13)
[2019-09-08 14:00] VITALS: BP 153/89; PULSE 70; RESP 18
[2019-09-08 20:10] VITALS: BP 150/99; PULSE 82; RESP 18
[2019-09-08] MEDS: TAMSULOSIN (SR) 0.4 MG CAP PO SCH (20:12)
[2019-09-08] MEDS: ATORVASTATIN 10 MG TAB PO SCH (20:13)
[2019-09-09] MEDS: PIPER-TAZO 3.375 GM IV (PMX) 100 ML IVPB SCH ×4 (00:26→17:11)
[2019-09-09] MEDS: ACCU-CHEK XX SCH ×6 (01:00→20:35)
[2019-09-09 02:00] VITALS: BP 147/98; PULSE 82
[2019-09-09 08:01] VITALS: BP 127/94; PULSE 83; RESP 17
[2019-09-09] MEDS: DOCUSATE SODIUM 100 MG CAP PO SCH ×2 (08:19→20:34)
[2019-09-09] MEDS: FERROUS SULFATE (EC) 325 MG TAB PO SCH ×2 (08:19→20:34)
[2019-09-09] MEDS: metFORMIN 850 MG TAB PO SCH ×2 (08:20→17:11)
[2019-09-09] MEDS: LISINOPRIL 20 MG TAB PO SCH (08:21)
[2019-09-09] MEDS: AMLODIPINE 10 MG TAB PO SCH (08:21)
[2019-09-09] MEDS: CHLORTHALIDONE 25 MG TAB PO SCH (08:21)
[2019-09-09] MEDS: ENOXAPARIN 40 MG/0.4 ML SYG SC SCH (08:23)
[2019-09-09] MEDS: VANCOMYCIN 1.25 GM/NS 250 ML 250 ML IVPB SCH ×2 (08:25→20:34)
[2019-09-09] MEDS ORDERED: DEXTROSE 5%-0.9% NACL 1,000 ML IV SCH (10:30)
[2019-09-09 14:38] VITALS: BP 108/67; PULSE 78; RESP 17
[2019-09-09 20:00] VITALS: BP 133/84; PULSE 92; RESP 17
[2019-09-09] MEDS: ATORVASTATIN 10 MG TAB PO SCH (20:34)
[2019-09-09] MEDS: TAMSULOSIN (SR) 0.4 MG CAP PO SCH (20:34)
[2019-09-10] VITALS (15 sets, daily range): BP systolic 106–135; BP diastolic 64–94; PULSE 76–86; RESP 13–19
[2019-09-10] MEDS: PIPER-TAZO 3.375 GM IV (PMX) 100 ML IVPB SCH ×4 (00:12→17:24)
[2019-09-10] MEDS: ACCU-CHEK XX SCH ×6 (01:14→20:41)
[2019-09-10] MEDS: DOCUSATE SODIUM 100 MG CAP PO SCH ×2 (08:28→20:34)
[2019-09-10] MEDS: FERROUS SULFATE (EC) 325 MG TAB PO SCH ×2 (08:28→20:34)
[2019-09-10] MEDS: metFORMIN 850 MG TAB PO SCH ×2 (08:29→17:26)
[2019-09-10] MEDS: CHLORTHALIDONE 25 MG TAB PO SCH (08:29)
[2019-09-10] MEDS: AMLODIPINE 10 MG TAB PO SCH (08:29)
[2019-09-10] MEDS: LISINOPRIL 20 MG TAB PO SCH (08:30)
[2019-09-10] MEDS: ENOXAPARIN 40 MG/0.4 ML SYG SC SCH (08:30)
[2019-09-10] MEDS: VANCOMYCIN 1.25 GM/NS 250 ML 250 ML IVPB SCH ×2 (08:33→20:27)
[2019-09-10] MEDS ORDERED: PROPOFOL 20 ML ONE (14:36)
[2019-09-10] MEDS ORDERED: LIDOCAINE 2% (SDV) 5 ML INJ ONE (14:36)
[2019-09-10] MEDS ORDERED: FENTAnyl 50 MCG/ML VIAL ONE (15:13)
[2019-09-10] MEDS ORDERED: HYDROGEN PEROXIDE 118 ML ONE (15:33)
[2019-09-10] MEDS ORDERED: POLYMYXIN/BACITRACIN 1L IRRIG IRR ONE (15:47)
[2019-09-10] MEDS ORDERED: LABETALOL HCL 20MG INJ IV PRN (16:30)
[2019-09-10] MEDS ORDERED: hydrALAzine 20 MG INJ IV PRN (16:30)
[2019-09-10] MEDS ORDERED: NACL 0.9% 3 ML SYG IV SCH (16:30)
[2019-09-10] MEDS ORDERED: DIPHENHYDRAMINE 50 MG INJ IV PRN (16:30)
[2019-09-10] MEDS ORDERED: METOCLOPRAMIDE 10 MG INJ IV PRN (16:30)
[2019-09-10] MEDS ORDERED: OXYCODONE/ACETAMINOPHEN (5/325) TAB PO PRN ×2 (16:30)
[2019-09-10] MEDS ORDERED: EPHEDrine 25 MG/5 ML SYG IV PRN (16:30)
[2019-09-10] MEDS ORDERED: MEPERIDINE 25 MG INJ IV PRN (16:30)
[2019-09-10] MEDS ORDERED: HYDROmorphONE 1 MG/5 ML IV SYRINGE IV PRN ×2 (16:30)
[2019-09-10] MEDS ORDERED: ALBUTEROL 0.083% (NEB) 2.5 MG/3 ML AMP HHN PRN (16:30)
[2019-09-10] MEDS ORDERED: ONDANSETRON 4 MG INJ IV PRN (16:30)
[2019-09-10] MEDS ORDERED: FENTAnyl 50 MCG/ML VIAL IV PRN (16:30)
[2019-09-10] MEDS ORDERED: morphine 2 MG INJ IV PRN (16:30)
[2019-09-10] MEDS ORDERED: KETOROLAC 30 MG INJ IV PRN (16:30)
[2019-09-10] MEDS: FENTAnyl 50 MCG/ML VIAL IV PRN ×2 (16:32→16:50)
[2019-09-10] MEDS: SOD CHLORIDE 0.9% 1,000 ML IV SCH (17:30)
[2019-09-10] MEDS: TAMSULOSIN (SR) 0.4 MG CAP PO SCH (20:34)
[2019-09-10] MEDS: ATORVASTATIN 10 MG TAB PO SCH (20:34)
[2019-09-11] MEDS: PIPER-TAZO 3.375 GM IV (PMX) 100 ML IVPB SCH ×5 (00:19→23:21)
[2019-09-11] MEDS: ACCU-CHEK XX SCH ×6 (01:00→21:00)
[2019-09-11 02:00] VITALS: BP 116/64; PULSE 77; RESP 18
[2019-09-11] MEDS: SOD CHLORIDE 0.9% 1,000 ML IV SCH ×3 (02:54→23:00)
[2019-09-11 07:46] VITALS: BP 127/81; PULSE 83; RESP 20
[2019-09-11] MEDS: VANCOMYCIN 1.25 GM/NS 250 ML 250 ML IVPB SCH ×2 (08:31→19:37)
[2019-09-11] MEDS: DOCUSATE SODIUM 100 MG CAP PO SCH ×2 (08:32→21:13)
[2019-09-11] MEDS: FERROUS SULFATE (EC) 325 MG TAB PO SCH ×2 (08:32→21:13)
[2019-09-11] MEDS: CHLORTHALIDONE 25 MG TAB PO SCH (08:33)
[2019-09-11] MEDS: LISINOPRIL 20 MG TAB PO SCH (08:33)
[2019-09-11] MEDS: AMLODIPINE 10 MG TAB PO SCH (08:33)
[2019-09-11] MEDS: ENOXAPARIN 40 MG/0.4 ML SYG SC SCH (08:35)
[2019-09-11] MEDS: metFORMIN 850 MG TAB PO SCH ×2 (08:37→17:10)
[2019-09-11 14:00] VITALS: BP 108/78; PULSE 94; RESP 18
[2019-09-11 19:20] VITALS: BP 141/85; PULSE 75; RESP 18
[2019-09-11] MEDS: TAMSULOSIN (SR) 0.4 MG CAP PO SCH (21:13)
[2019-09-11] MEDS: ATORVASTATIN 10 MG TAB PO SCH (21:13)
[2019-09-12] MEDS: ACCU-CHEK XX SCH ×5 (00:29→21:00)
[2019-09-12 01:50] VITALS: BP 144/82; PULSE 84; RESP 19
[2019-09-12] MEDS: PIPER-TAZO 3.375 GM IV (PMX) 100 ML IVPB SCH (05:15)
[2019-09-12 08:00] VITALS: BP 138/73; PULSE 82; RESP 18
[2019-09-12] MEDS: FERROUS SULFATE (EC) 325 MG TAB PO SCH ×2 (08:32→20:45)
[2019-09-12] MEDS: DOCUSATE SODIUM 100 MG CAP PO SCH ×2 (08:32→21:00)
[2019-09-12] MEDS: VANCOMYCIN 1.25 GM/NS 250 ML 250 ML IVPB SCH (08:32)
[2019-09-12] MEDS: CHLORTHALIDONE 25 MG TAB PO SCH (08:33)
[2019-09-12] MEDS: LISINOPRIL 20 MG TAB PO SCH (08:33)
[2019-09-12] MEDS: ENOXAPARIN 40 MG/0.4 ML SYG SC SCH (08:35)
[2019-09-12] MEDS: metFORMIN 850 MG TAB PO SCH ×2 (08:41→17:28)
[2019-09-12] MEDS: HYDROCODONE/APAP (5/325) TAB PO PRN ×3 (08:52→20:46)
[2019-09-12] MEDS: AMLODIPINE 10 MG TAB PO SCH ×2 (09:00→12:19)
[2019-09-12] MEDS: CEFTRIAXONE 1 GM/50 ML (PMX) 50 ML IVPB SCH (10:32)
[2019-09-12 14:00] VITALS: BP 126/75; PULSE 76; RESP 16
[2019-09-12 20:36] VITALS: BP 141/81; PULSE 81; RESP 16
[2019-09-12] MEDS: TAMSULOSIN (SR) 0.4 MG CAP PO SCH (20:45)
[2019-09-12] MEDS: VANCOMYCIN 1 GM 250 ML IVPB SCH (20:46)
[2019-09-12] MEDS: ATORVASTATIN 10 MG TAB PO SCH (20:46)
[2019-09-13 01:12] VITALS: BP 131/75; PULSE 76; RESP 16
[2019-09-13] MEDS: HYDROCODONE/APAP (5/325) TAB PO PRN (07:26)
[2019-09-13] MEDS: metFORMIN 850 MG TAB PO SCH ×2 (07:29→16:54)
[2019-09-13] MEDS: ACCU-CHEK XX SCH ×4 (07:30→21:05)
[2019-09-13 07:40] VITALS: BP 153/90; PULSE 85; RESP 19
[2019-09-13] MEDS: CHLORTHALIDONE 25 MG TAB PO SCH (08:35)
[2019-09-13] MEDS: FERROUS SULFATE (EC) 325 MG TAB PO SCH ×2 (08:35→20:41)
[2019-09-13] MEDS: LISINOPRIL 20 MG TAB PO SCH (08:36)
[2019-09-13] MEDS: AMLODIPINE 10 MG TAB PO SCH (08:36)
[2019-09-13] MEDS: DOCUSATE SODIUM 100 MG CAP PO SCH ×2 (08:36→20:41)
[2019-09-13] MEDS: ENOXAPARIN 40 MG/0.4 ML SYG SC SCH (08:37)
[2019-09-13] MEDS: VANCOMYCIN 1 GM 250 ML IVPB SCH ×2 (08:41→20:41)
[2019-09-13] MEDS: CEFTRIAXONE 1 GM/50 ML (PMX) 50 ML IVPB SCH (10:56)
[2019-09-13 14:14] VITALS: BP 116/64; PULSE 87; RESP 18
[2019-09-13 19:47] VITALS: BP 122/78; PULSE 83; RESP 18
[2019-09-13] MEDS: ATORVASTATIN 10 MG TAB PO SCH (20:41)
[2019-09-13] MEDS: TAMSULOSIN (SR) 0.4 MG CAP PO SCH (20:41)
[2019-09-14 02:34] VITALS: BP 121/76; PULSE 88; RESP 18
[2019-09-14] MEDS: ACCU-CHEK XX SCH ×3 (07:05→17:05)
[2019-09-14 07:30] VITALS: BP 133/84; PULSE 80; RESP 17
[2019-09-14] MEDS: metFORMIN 850 MG TAB PO SCH ×2 (08:39→17:14)
[2019-09-14] MEDS: FERROUS SULFATE (EC) 325 MG TAB PO SCH (08:40)
[2019-09-14] MEDS: DOCUSATE SODIUM 100 MG CAP PO SCH (08:40)
[2019-09-14] MEDS: ENOXAPARIN 40 MG/0.4 ML SYG SC SCH (08:40)
[2019-09-14] MEDS: CHLORTHALIDONE 25 MG TAB PO SCH (08:46)
[2019-09-14] MEDS: AMLODIPINE 10 MG TAB PO SCH (08:47)
[2019-09-14] MEDS: LISINOPRIL 20 MG TAB PO SCH (08:47)
[2019-09-14] MEDS: VANCOMYCIN 1 GM 250 ML IVPB SCH (09:25)
[2019-09-14] MEDS: CEFTRIAXONE 1 GM/50 ML (PMX) 50 ML IVPB SCH (12:49)
[2019-09-14 14:00] VITALS: BP 128/82; PULSE 81; RESP 18
[2019-09-14] MEDS ORDERED: AMOXICILLIN 500 MG CAP PO SCH (22:00)
[2019-09-15] MEDS ORDERED: VANCOMYCIN 750 MG (PMX) 250 ML IVPB SCH (02:00)
== END 2019-09-14 18:45 | disposition home or self-care (01) | DRG 988 ==
LOC: E/R 18:27 → MS3 20:30
PROVIDERS: ADMIT Internal Medicine; ATTEND Internal Medicine
PROC: 0MBJ0ZZ Excision of Left Abdomen Bursa and Ligament, Open Approach (ICD-10-PCS; principal; 2019-09-10 14:30)
DX: L03.114 Cellulitis of left upper limb (principal); N17.9 Acute kidney failure, unspecified; M71.122 Other infective bursitis, left elbow; E11.9 Type 2 diabetes mellitus without complications; E78.5 Hyperlipidemia, unspecified; N40.0 Benign prostatic hyperplasia without lower urinary tract symptoms; I10 Essential (primary) hypertension; E16.2 Hypoglycemia, unspecified; H91.92 Unspecified hearing loss, left ear; Z96.659 Presence of unspecified artificial knee joint; Z87.891 Personal history of nicotine dependence; Z59.0 Homelessness; D50.9 Iron deficiency anemia, unspecified
CPT/HCPCS: 36415; 71045; 73221; 80048; 80053; 80061; 80202; 81001; 82150; 82728; 82962; 83036; 83540; 83605; 83690; 83735; 84100; 84484; 85025; 85610; 85651; 85730; 86140; 87070; 87075; 87081; 87086; 87102; 87116; 88304; 93005; 96374; J0696; J1650; J2543; J3010; J3370; J7030; J7042